=== PATIENT | male | born 1995 | race Caucasian/White ===

== ENCOUNTER → 2016-12-12 | Emergency (ER) | payer OTHER ==
[~2016-12-12] VITALS: Ht 167.6 cm; Wt 104.3 kg
[~2016-12-12] MED LIST: BENADRYL25 MG PO
== END | disposition home or self-care (01) ==
LOC: ED 21:18
DX: T78.49XA Other allergy, initial encounter (principal); Z88.1 Allergy status to other antibiotic agents; Z79.899 Other long term (current) drug therapy
CPT/HCPCS: 96372; 99283; J1200